=== PATIENT | male | born 1990 | race African-American/Black ===

== ENCOUNTER 2020-04-23 01:33 | Inpatient (IN) | payer OTHER ==
[~2020-04-23] VITALS: Ht 185.4 cm; Wt 113.4 kg
[2020-04-23 01:44] VITALS: Ht 185.4 cm; Wt 113.4 kg
[2020-04-23 02:07] LABS: BASOPHIL % 0.5 % (0-2); PLATELET COUNT 267 x10^3mcL (130-400); RED CELL DISTRIBUTION WIDTH 13.5 % (11.5-14.5)
[2020-04-23 02:20] LABS: CALCIUM 8.5 mg/dL (8.5-10.1); CARBON DIOXIDE 32.6 mmol/L (21-32); CHLORIDE SERUM 101 mmol/L (98-107); CREATININE SERUM 1.2 mg/dL (0.7-1.3); GFR1 > 60 mL/min; GLUCOSE SERUM 97 mg/dL (74-106); POTASSIUM SERUM 3.7 mmol/L (3.5-5.1); SODIUM SERUM 140 mmol/L (136-145)
[2020-04-23 02:26] LABS: ALKALINE PHOSPHATASE 52 U/L (46-116); ALT/SGPT 19 U/L (16-63); AST/SGOT 12 U/L (15-37); BILIRUBIN TOTAL 0.27 mg/dL (0.20-1.00); TOTAL PROTEIN, SERUM 7.1 g/dL (6.4-8.2)
[2020-04-23 04:37] LABS: AMPHETAMINE QUAL UR POSITIVE (See below)
[2020-04-24 21:52] VITALS: BP 140/95
[2020-04-25 06:30] VITALS: BP 122/85
[2020-04-25 08:53] VITALS: BP 127/84
[2020-04-25] MEDS ORDERED: ZYP5 PO (09:12)
[2020-04-25 14:37] VITALS: BP 123/84
[2020-04-25 14:40] VITALS: BP 144/99
[2020-04-25 18:03] VITALS: BP 138/89
[2020-04-25 21:59] VITALS: BP 129/90
[2020-04-26 06:33] VITALS: BP 119/86
[2020-04-26 22:01] VITALS: BP 138/89
[2020-04-27 05:27] VITALS: BP 118/81
[2020-04-27 08:41] VITALS: BP 123/84
[2020-04-27 11:40] VITALS: BP 136/92
[2020-04-27 16:33] VITALS: BP 135/99
[2020-04-27 21:00] VITALS: BP 140/99
[2020-04-28 05:45] VITALS: BP 115/65
[2020-04-28 07:08] LABS: BASOPHIL % 0.4 % (0-2); PLATELET COUNT 237 x10^3mcL (130-400); RED CELL DISTRIBUTION WIDTH 12.8 % (11.5-14.5)
[2020-04-28 07:42] LABS: ALBUMIN 3.6 g/dL (3.4-5.0); ALKALINE PHOSPHATASE 44 U/L (46-116); AST/SGOT 15 U/L (15-37); BILIRUBIN TOTAL 0.41 mg/dL (0.20-1.00); CHLORIDE SERUM 102 mmol/L (98-107); FREE T4 0.86 ng/dL (0.76-1.46); GFR1 > 60 mL/min; GLUCOSE SERUM 83 mg/dL (74-106); POTASSIUM SERUM 3.9 mmol/L (3.5-5.1); SODIUM SERUM 139 mmol/L (136-145); TOTAL PROTEIN, SERUM 6.7 g/dL (6.4-8.2)
[2020-04-28 08:09] LABS: ALT/SGPT 19 U/L (16-63)
[2020-04-28 11:23] VITALS: BP 133/87
[2020-04-28 14:15] VITALS: BP 123/85
[2020-04-28 17:26] VITALS: BP 123/85
[2020-04-28 21:37] VITALS: BP 130/89
[2020-04-29 05:55] VITALS: BP 132/89
[2020-04-29 08:26] VITALS: BP 142/100
[2020-04-29] MEDS ORDERED: ZYPREXA5 M1 PO (11:57)
[2020-04-30] MEDS ORDERED: EFF37 PO (14:44)
== END 2020-04-29 14:07 | disposition home or self-care (01) | DRG 751 ==
LOC: ED 01:33 → MU 04-24 04:25
PROVIDERS: Emergency Medicine; Psychiatry & Neurology Psychiatry; ADMIT Student in an Organized Health Care Education/Training Program; ATTEND Student in an Organized Health Care Education/Training Program
DX: F29 Unspecified psychosis not due to a substance or known physiological condition (principal); F20.9 Schizophrenia, unspecified; F32.9 Major depressive disorder, single episode, unspecified; G43.909 Migraine, unspecified, not intractable, without status migrainosus; F15.10 Other stimulant abuse, uncomplicated
CPT/HCPCS: 84439; G0378; G0480; J1885; U0003-CS

== ENCOUNTER 2020-09-09 00:31 | Emergency (ER) | payer OTHER ==
[~2020-09-09] VITALS: Ht 182.9 cm; Wt 90.7 kg
[~2020-09-09 00:31] MED LIST: EFF37 PO; ZYP5 PO; ZYPREXA5 M1 PO
[2020-09-09 00:40] VITALS: Ht 182.9 cm; Wt 90.7 kg
[2020-09-09 01:40] LABS: BASOPHIL % 0.3 % (0-2); PLATELET COUNT 242 x10^3mcL (130-400); RED CELL DISTRIBUTION WIDTH 13.3 % (11.5-14.5)
[2020-09-09 01:53] LABS: CALCIUM 9.2 mg/dL (8.5-10.1); CARBON DIOXIDE 29.2 mmol/L (21-32); CHLORIDE SERUM 103 mmol/L (98-107); CREATININE SERUM 1.2 mg/dL (0.7-1.3); GFR1 > 60 mL/min; GLUCOSE SERUM 111 mg/dL (74-106); POTASSIUM SERUM 3.5 mmol/L (3.5-5.1); SODIUM SERUM 140 mmol/L (136-145)
[2020-09-09 01:58] LABS: ALBUMIN 4.3 g/dL (3.4-5.0); ALKALINE PHOSPHATASE 54 U/L (46-116); ALT/SGPT 22 U/L (16-63); AST/SGOT 18 U/L (15-37); BILIRUBIN TOTAL 0.83 mg/dL (0.20-1.00); TOTAL PROTEIN, SERUM 7.5 g/dL (6.4-8.2)
[2020-09-09 08:32] LABS: AMPHETAMINE QUAL UR POSITIVE (See below)
[2020-09-09 16:37] VITALS: BP 131/90
== END 2020-09-09 16:37 ==
LOC: ED 00:31
PROVIDERS: Emergency Medicine
DX: R41.82 Altered mental status, unspecified (principal)
CPT/HCPCS: G0480; J3490; J7030; Q0092

== ENCOUNTER 2020-10-01 16:57 | Emergency (ER) | payer OTHER ==
[~2020-10-01] VITALS: Ht 185.4 cm; Wt 113.4 kg
[2020-10-01 17:03] VITALS: Ht 185.4 cm; Wt 113.4 kg
[2020-10-01 17:45] LABS: BASOPHIL % 0.5 % (0-2); PLATELET COUNT 268 x10^3mcL (130-400); RED CELL DISTRIBUTION WIDTH 13.7 % (11.5-14.5)
[2020-10-01 17:59] LABS: CALCIUM 9.2 mg/dL (8.5-10.1); CARBON DIOXIDE 27.3 mmol/L (21-32); CHLORIDE SERUM 103 mmol/L (98-107); GFR1 > 60 mL/min; GLUCOSE SERUM 85 mg/dL (74-106); POTASSIUM SERUM 3.5 mmol/L (3.5-5.1); SODIUM SERUM 139 mmol/L (136-145)
[2020-10-01 18:01] LABS: ALKALINE PHOSPHATASE 68 U/L (46-116); ALT/SGPT 46 U/L (16-63); AST/SGOT 14 U/L (15-37); BILIRUBIN TOTAL 0.7 mg/dL (0.20-1.00); LIPASE 255 IU/L (73-393); TOTAL PROTEIN, SERUM 7.3 g/dL (6.4-8.2)
[2020-10-01 19:35] VITALS: BP 120/78
== END 2020-10-01 19:35 | disposition home or self-care (01) ==
LOC: ED 16:57
PROVIDERS: Student in an Organized Health Care Education/Training Program
DX: K80.20 Calculus of gallbladder without cholecystitis without obstruction (principal)
CPT/HCPCS: J1885; Q0162

== ENCOUNTER 2020-10-03 18:38 | Emergency (ER) | payer OTHER ==
[~2020-10-03] VITALS: Ht 185.4 cm; Wt 86.2 kg
[2020-10-03 19:19] VITALS: Ht 185.4 cm; Wt 86.2 kg
[2020-10-03 19:48] LABS: BASOPHIL % 0.3 % (0-2); PLATELET COUNT 256 x10^3mcL (130-400); RED CELL DISTRIBUTION WIDTH 13.6 % (11.5-14.5)
[2020-10-03 19:55] LABS: CALCIUM 9.2 mg/dL (8.5-10.1); CARBON DIOXIDE 23.6 mmol/L (21-32); CHLORIDE SERUM 102 mmol/L (98-107); GFR1 > 60 mL/min; GLUCOSE SERUM 79 mg/dL (74-106); POTASSIUM SERUM 3.7 mmol/L (3.5-5.1); SODIUM SERUM 139 mmol/L (136-145)
[2020-10-03 19:59] LABS: ALBUMIN 4.1 g/dL (3.4-5.0); ALKALINE PHOSPHATASE 68 U/L (46-116); ALT/SGPT 34 U/L (16-63); AMYLASE 35 U/L (25-115); AST/SGOT 13 U/L (15-37); BILIRUBIN TOTAL 0.7 mg/dL (0.20-1.00); LIPASE 80 IU/L (73-393); TOTAL PROTEIN, SERUM 7.6 g/dL (6.4-8.2)
[2020-10-03 22:32] VITALS: BP 135/85
== END 2020-10-03 22:32 | disposition home or self-care (01) ==
LOC: ED 18:38
PROVIDERS: Specialist
DX: K80.50 Calculus of bile duct without cholangitis or cholecystitis without obstruction (principal); Z76.0 Encounter for issue of repeat prescription
CPT/HCPCS: J1885; J7030

== ENCOUNTER 2020-12-08 21:52 | Emergency (ER) | payer OTHER ==
[~2020-12-08] VITALS: Ht 185.4 cm; Wt 99.8 kg
[2020-12-08 22:12] VITALS: BP 140/96; Ht 185.4 cm; Wt 99.8 kg
== END 2020-12-09 01:28 | disposition left against medical advice (07) ==
LOC: ED 21:52
DX: Z53.21 Procedure and treatment not carried out due to patient leaving prior to being seen by health care provider (principal)